=== PATIENT | female | born 1995 | race Caucasian/White ===

== ENCOUNTER → 2016-10-28 | Outpatient (CLI) | payer OTHER ==
--- NOTE | 2016-10-28 12:36 | XR ---
EXAMINATION TYPE: XR foot complete RT DATE OF EXAM: 10/28/2016 COMPARISON: NONE HISTORY: 21-year-old female with injury and pain. A nail went through her mid arch today. TECHNIQUE: 3 views FINDINGS: There is some soft tissue swelling along the plantar midfoot. No retained radiopaque foreign body. No acute fracture, subluxation, or dislocation. IMPRESSION: Some mid foot plantar soft tissue swelling. No retained radiopaque foreign body or acute osseous abno rmality seen.
== END | disposition home or self-care (01) ==
LOC: RADXRMAIN 11:23
PROVIDERS: ATTEND Emergency Medicine
DX: M79.89 Other specified soft tissue disorders (principal)

== ENCOUNTER 2019-11-16 23:01 | Emergency (ER) | payer OTHER ==
[2019-11-16 23:15] VITALS: BP 120/69; PULSE 98; RESP 18; TEMP 98.7
[2019-11-16] MEDS ORDERED: LIDOCAINE 1% INJ 10MG/ML (20 ML MDV) SQ ONE (23:22)
[2019-11-16] MEDS ORDERED: BUPIVACAINE (PF) 0.25% 30 ML VIAL SQ STA (23:22)
--- NOTE | 2019-11-16 23:26 | ED ---
Skin/Abscess/FB HPI - General Chief complaint: Skin/Abscess/Foreign Body Stated complaint: Finger Injury, [facility] Time Seen by Provider: 11/16/19 23:19 Source: patient Mode of arrival: ambulatory Limitations: no limitations - History of Present Illness Initial comments: Татьяна castellano previously healthy 24-year-old female presents the ER today for evaluation of injury to her left ring finger. Patient reports that she was wearing her mental leading ring which caught on a barn door hinge, ringing was essentially ripped off of her finger she immediately noted bleeding to the finger. Patient states she got lightheaded when she saw the blood, her coworker wrapped up the finger and advised her to come the hospital. Patient was able to remove the ring. She does report that her last tetanus update was 3 years ago. - Related Data Allergies Allergy/AdvReac Type Severity Reaction Status Date / Time No Known Allergies Allergy Verified 11/16/19 23:15 Review of Systems ROS Statement: Those systems with pertinent positive or pertinent negative responses have been documented in the HPI. ROS Other: All systems not noted in ROS Statement are negative. Past Medical History Past Medical History: No Reported History History of Any Multi-Drug Resistant Organisms: None Reported Past Surgical History: No Surgical Hx Reported Past Psychological History: No Psychological Hx Reported Smoking Status: Current every day smoker Past Alcohol Use History: Rare Past Drug Use History: None Reported General Exam - General Exam Comments Initial Comments: Physical Exam GENERAL: Patient is well-developed and well-nourished. Patient is nontoxic and well-hydrated and is in no distress. HENT: Normocephalic, Atraumatic. EYES: PERRL, EOMI PULMONARY: Unlabored respirations. CARDIOVASCULAR: RRR Warm and well perfused extremities ABDOMEN: Non-distended SKIN: No rashes or bruising : Deferred NEUROLOGIC: Alert and oriented Normal speech Normal gait MUSCULOSKELETAL: Moving all extremities with no apparent injury SKIN: Avulsion the superficial skin on the palmar surface of left ring finger from MCP to PIP PSYCHIATRIC: No SI/HI Limitations: no limitations Course Vital Signs 11/16/19 23:12 Temperature 98.7 F Pulse Rate 98 Respiratory 18 Rate Blood Pressure 120/69 O2 Sat by Pulse 99 Oximetry Procedures - Nerve Block Consent Obtained: verbal consent Local Anesthetic Used: Marcaine 0.25% Amount of anesthesia used: 2 Side: left Nerve Blocks: digital Procedure Successful: Yes Complications: none Patient Tolerated Procedure: well, no complications Medical Decision Making - Medical Decision Making Patient was seen and evaluated history was obtained from the patient Physical exam reveals an avulsion of the skin on the palmar surface of the left ring finger, this is not deep there's bloody dermis visible no deep injury Nerve block was performed wound was cleansed, avulsed tissue was trimmed and the wound was dressed Wound care was discussed patient [place] return parameters were discussed patient was discharged home in stable condition Disposition Clinical Impression: Avulsion of skin of finger Disposition: HOME SELF-CARE Condition: Stable Instructions (If sedation given, give patient instructions): Skin Avulsion (ED) Is patient prescribed a controlled substance at d/c from ED?: No Referrals: None,Stated [Primary Care Provider] - 1-2 days
== END 2019-11-17 00:06 | disposition home or self-care (01) ==
LOC: EC 23:01
DX: S61.205A Unspecified open wound of left ring finger without damage to nail, initial encounter (principal); F17.200 Nicotine dependence, unspecified, uncomplicated; W23.0XXA Caught, crushed, jammed, or pinched between moving objects, initial encounter; Y92.69 Other specified industrial and construction area as the place of occurrence of the external cause; Y99.0 Civilian activity done for income or pay
CPT/HCPCS: 99283; 64450; J2001

== ENCOUNTER 2021-01-01 14:01 | Emergency (ER) | payer BC ==
[2021-01-01 14:09] VITALS: BP 124/81; PULSE 116; RESP 16; TEMP 98
--- NOTE | 2021-01-01 15:32 | ED ---
Upper Extremity HPI - General Chief Complaint: Extremity Injury, Upper Stated Complaint: Injury-Hand Time Seen by Provider: 01/01/21 15:06 Source: patient Mode of arrival: ambulatory Limitations: no limitations - History of Present Illness Initial Comments: This is a 25 yo female with no PMHx who presents to the ED for R hand injury. 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 She states she has pain over the lateral dorsal aspect of the hand. States she has mild tingling in the 4th/5th digits. No numbness or weakness but ROM decreased secondary to pain. Denies any other injuries. States she is here to get cleared to go back to work. - Related Data Allergies Allergy/AdvReac Type Severity Reaction Status Date / Time No Known Allergies Allergy Verified 01/01/21 14:09 Review of Systems ROS Statement: Those systems with pertinent positive or pertinent negative responses have been documented in the HPI. ROS Other: All systems not noted in ROS Statement are negative. Past Medical History Past Medical History: No Reported History History of Any Multi-Drug Resistant Organisms: None Reported Past Surgical History: No Surgical Hx Reported Past Psychological History: No Psychological Hx Reported Smoking Status: Current every day smoker Past Alcohol Use History: Rare Past Drug Use History: None Reported General Exam - General Exam Comments Initial Comments: Constitutional: Awake alert Appears comfortable Head: Normocephalic atraumatic Eyes: no conjunctival injection No scleral icterus EOMI Neck: No JVD Supple Heart: Regular rate rhythm normal S1-S2 no murmurs Lungs: Clear to auscultation bilaterally No wheezing No rales Abdomen: Soft nondistended nontender Extremities: Non edematous DP pulses intact Radial pulses intact, there is ecchymosis and swelling over the distal aspect of the fifth metacarpal and the dorsal side. The patient does have tenderness over this location. The patient has intact sensation and good cap refill in all fingers. No tenderness to palpation over the other digits. No painful range of motion or tenderness over the wrist. Neuro: A&Ox3 No focal neurologic deficits Psych: Appropriate mood and affect Limitations: no limitations Course Vital Signs 01/01/21 14:06 Temperature 98 F Pulse Rate 116 H Respiratory 16 Rate Blood Pressure 124/81 O2 Sat by Pulse 99 Oximetry Medical Decision Making - Medical Decision Making This is a 25-year-old female who presents emergency department for right hand pain. She had an x-ray performed that did show a distal fifth metacarpal fracture. This was a related and comminuted. I did do a little bit of traction and reduction at bedside and the patient was placed into an ulnar gutter splint. The patient tolerated this well. She will be given a work note until she is cleared by hand surgery. She was given Dr. Robles for follow-up. Total return emergency Department if she has increasing pain, numbness, [place], or weakness in the extremity. All questions were answered. Disposition Clinical Impression: Closed fracture of 5th metacarpal Disposition: HOME SELF-CARE Condition: Stable Instructions (If sedation given, give patient instructions): Hand Fracture (ED) Is patient prescribed a controlled substance at d/c from ED?: No Referrals: None,Stated [Primary Care Provider] - 1-2 days Jesse Murry DO [Doctor of Osteopathic Medicine] - 1-2 days
--- NOTE | 2021-01-01 15:57 | XR ---
EXAMINATION TYPE: XR hand complete RT DATE OF EXAM: 01/01/2021 COMPARISON: NONE HISTORY: Pain TECHNIQUE: Three views are submitted. FINDINGS: There is a displaced intra-articular fracture of the distal fifth metacarpal with angulation. There is a deformity of the distal phalanx second digit correlate with point tenderness. IMPRESSION: 1. Displaced angulated fracture intra-articular distal fifth metacarpal. 2. Age-indeterminate fracture distal phalanx second digit correlate with point tenderness.
== END 2021-01-01 16:35 | disposition home or self-care (01) ==
LOC: EC 14:01
DX: S62.306A Unspecified fracture of fifth metacarpal bone, right hand, initial encounter for closed fracture (principal); F17.200 Nicotine dependence, unspecified, uncomplicated; W23.1XXA Caught, crushed, jammed, or pinched between stationary objects, initial encounter; Y99.0 Civilian activity done for income or pay
CPT/HCPCS: 29125; 99283

== ENCOUNTER → 2021-01-11 | Outpatient (CLI) | payer BC ==
--- NOTE | 2021-01-11 09:20 | CT ---
EXAMINATION TYPE: CT hand RT wo con DATE OF EXAM: 01/11/2021 COMPARISON: Right hand x-ray 10 days ago HISTORY: Displaced fx of 5th metacarpal after crushing injury CT DLP: 310.0 mGycm Automated exposure control for dose reduction was used. FINDINGS: Acute comminuted minimally displaced intra-articular fracture through the fifth metatarsal head as 3 fracture fragments including the distal radial and distal ulnar fragments both measuring approximatel y 8 to 9 mm by 5 mm. There is some abnormal palmar angulation of approximately 35 degrees on sagittal images. Joint spaces fairly well maintained. Some impaction at fracture line is noted. Remainder of the Right hand shows suspected artifact from the distal phalanx of all digits mimicking fracture, correlate clinically . Metallic BB placed distal radial level. Joint spaces are maintained . Moderate subcutaneous edema throughout the second finger is present, cannot exclude slightly displa jen distal fracture distal phalanx sagittal image 33 versus artifact. IMPRESSION: As above.
== END | disposition home or self-care (01) ==
LOC: RADCTMAIN 07:30
PROVIDERS: ATTEND Orthopaedic Surgery Hand Surgery
DX: S62.398A Other fracture of other metacarpal bone, initial encounter for closed fracture (principal)

== ENCOUNTER 2021-01-13 10:53 | Day surgery (SDC) | payer BC ==
--- NOTE | 2021-01-11 20:56 | P.HPOR ---
History of Present Illness H&P Date: 01/11/21 Chief Complaint: Right Intra-articular metacarpal head fracture New Patient Hand Surgery H&P Office Note Subjective: This is a 25 year old RHD female that presents today for initial evaluation regarding a right hand injury that occurred on 01/01/21. Patient states she was helping demo a house when her right hand was crushed between drywall and an aluminum beam. She was seen in the ED and placed in a splint. She denies any prior injury to this hand in the past. Denies any paresthesias and has no other complaints at this time and currently works at the [employer]. The 16 point Review of Systems has been reviewed with patient. Social History: Smoking:Current smoker Smoking Amount: 1 PPD Alcohol: none Past Medical History: None Family History: Mother: alive thyroid disorder. Father: alive & well. Sibling(s): alive & well. Family History: lung cancer, kidney cancer, bone cancer. Dementia, thyroid disease, brain cancer Current Medications: Rx: allergy medication , Ref: 0 Rx: TylenoL 325 mg tablet Ref: 0 Instructions: take 1 - 2 tablets (325 - 650 mg) by oral route bedtime Physical Examination: RUE: AIN/PIN/Radial/Ulnar/Median motor intact. Radial/Ulnar/Median SILT. 2+/4 Radial/Ulnar pulses palpated. Pain, swelling, bruising and TTP over 5th metacarpal head/ neck region with soft tissue swelling. No rotational deformity present with attempted clenched fist. Imaging: X-Rays of the right hand demonstrate a comminuted and displaced intra-articular 5th metacarpal head fracture with intra-articular step off and separation of 2mm. Impression: 1.) Right displaced and comminuted intra-articular 5th metacarpal head fracture. Plan: Diagnosis and treatment options were discussed with the patient. Due to the intra-articular nature and amount of articular step off and displacement seen on todays imaging I recommend surgical intervention involving ORIF of her comminuted intra-articular 5th metacarpal head fracture. Risks and benefits of surgery were discussed including bleeding, damage to surrounding tissue, possible irritable hardware, need for further surgery, and possibility of post- traumatic arthritis were discussed with the patient and she was understanding of this and wished to pursue surgical intervention. Pre-operative labs are ordered. Pre-operative CT of the right hand without contrast is ordered to better define the multiple fragments of the right 5th metacarpal head for preoperative planning that are not well visualized on plain imaging. We will tentatively plan for ORIF of her right intra-articular 5th metacarpal head fracture. She was placed into a ulnar gutter splint and is to be non-weight bearing to her right upper extremity and is to perform clean, dry left handed work only. All questions answered. -Jesse Murry DO Orthopedic Hand/Upper Extremity Surgeon Past Medical History Past Medical History: No Reported History History of Any Multi-Drug Resistant Organisms: None Reported Past Surgical History: No Surgical Hx Reported Past Psychological History: No Psychological Hx Reported Smoking Status: Current every day smoker Past Alcohol Use History: Rare Past Drug Use History: None Reported Medications and Allergies Allergies Allergy/AdvReac Type Severity Reaction Status Date / Time No Known Allergies Allergy Verified 01/01/21 14:09 Physical Examination Osteopathic Statement: *. No significant issues noted on an osteopathic structural exam other than those noted in the History and Physical/Consult.
[2021-01-12 13:26] VITALS: BMI 20.5
[~2021-01-13 10:53] MED LIST: DEXAMETHASONE SOD PHOSPHATE 4 MG/ML 1 ML VIAL IV ONE; HYDROmorphone 0.5 MG/0.5 ML SYRINGE IVP PRN; LACTATED RINGERS 1,000 ML IV SCH; LIDOCAINE 1% (10MG/ML) FOR IV START INTRADERMA PRN; ONDANSETRON 4 MG/2 ML VIAL IVP ONE; SCOPOLAMINE 1.5MG/72HR PATCH TRANSDERM ONE
[2021-01-13] MEDS ORDERED: KETOROLAC 15 MG/ML 1 ML VIAL ONE (12:33)
[2021-01-13] MEDS ORDERED: fentaNYL (PF) 50 MCG/ML 2 ML AMP ONE (12:33)
[2021-01-13] MEDS ORDERED: DILTIAZEM 100 MG VIAL.PORT IV ONE (12:33)
[2021-01-13] MEDS ORDERED: LIDOCAINE 1% INJ 10MG/ML (20 ML MDV) ONE (12:33)
[2021-01-13] MEDS ORDERED: PROPOFOL 10 MG/ML 20 ML VIAL IV ONE (12:33)
[2021-01-13] MEDS ORDERED: MIDAZOLAM 2 MG/2 ML VIAL ONE (12:33)
[2021-01-13] MEDS ORDERED: BUPIVACAINE (PF) 0.5% 30 ML VIAL SQ ONE ×2 (13:09→13:40)
[2021-01-13 14:02] VITALS: TEMP 97.9
[2021-01-13 14:45] VITALS: RESP 16
[2021-01-13 15:01] VITALS: BP 110/74; PULSE 81
--- NOTE | 2021-01-14 07:54 | P.OP ---
Date of Procedure: 01/13/21 Preoperative Diagnosis: Right intra-articular 5th metacarpal head fracture, displaced. Postoperative Diagnosis: Same Procedure(s) Performed: Open reduction internal fixation of right intra-articular 5th metacarpal head fracture, displaced Implants: Synthes 1.5mm cortical screw x 2 Anesthesia: KATIEA Surgeon: Jesse Murry Estimated Blood Loss (ml): 0 Pathology: none sent Condition: stable Disposition: PACU Description of Procedure: This is a 25 year old female who sustained a displaced intra-articular right 5th metacarpal head fracture with articular step off and widening while demolishing a house after her hand was crushed between a metal beam and drywall. Due to the nature of in fracture an amount of articular displacement decision to proceed with surgical intervention was made. Risks and benefits of surgery were discussed with the patient including bleeding, damage to surrounding tissue, infection, need for further surgery, possible need for hardware removal in future, progression to post traumatic arthritis as well as risks of anesthesia including pulmonary embolism and even and the patient wished to proceed with surgical intervention. The patients was seen in the pre-operative area by myself. Consent and H&P were completed and updated. The correct extremity was marked in the pre-operative area by myself and all other questions were answered. Operative Narrative: The patient was brought to the operating room by the department of anesthesia. They remained on the portable stretcher and a rolling hand table was brought to the side of the operative extremity. The patient was then drifted off to sleep by the department of anesthesia. A nonsterile tourniquet was then applied to the operative extremity and the right upper extremity was then prepped and draped in normal sterile fashion. Pre-operative time out was performed indicating the correct patient, procedure and laterality. All in the room agreed. Pre-operative antibiotics were given prior to skin incision. The operative extremity was the exsanguinated with an esmarch bandage and the tourniquet was inflated to 250mmHg. Longitudinal incision was made directly over the right small finger MCP joint. Blunt dissection was performed with Littler scissors down to the level of the common extensor tendon of the small finger. This was split centrally and in a longitudinal fashion, joint capsule was then identified and sharply split longitudinally and fracture hematoma was identified and irrigated out. The fracture fragments were identified and large intra-articular split was appreciated that involved the radial and ulnar condyles of the metacarpal head with 3mm of articular gap. There was also metaphyseal comminution present. Reduction maneuver to correct volar angulation was performed initially and a pointed reduction clamp was used to anatomically reduce the articular displacement between the 2 large fracture fragments of the metacarpal head. Anatomic reduction of the articular surface was then confirmed on intra-opera tive fluoroscopy. A .045 K-wire was then inserted at an extra-articular starting point across the radial and ulnar portions of the articular head bicortically just dorsal and proximal to the ulnar collateral ligament origin of the MCP joint in a ulnar to radial fashion. 0.045 k-wire was then removed and a 1.5mm drill was used to open the near cortex. Depth gauge was used to measure for screw length and a 1.5mm screw was inserted across the two articular fragments in a lag by technique fashion and great compression of the articular fragments was obtained. Attention was then brought to the large radial articular portion of the fracture. 0.045 k-wire was inserted in a retrograde fashion through the center of the articular portion of the radial fragment taking care not to damage surrounding metacarpal articular cartilage, K-wire purchase was bicortical with purchase and extension down to the meta-diaphyseal cortex. Near cortex was then drilled with a 1.5mm drill bit. Countersink was then used to ensure the head of the screw would not protrude. Depth gauge was used to measure for screw length and a 1.5mm cortical screw was inserted in a lag by technique fashion with good compression appreciated upon screw insertion. The MCP joint was then put through normal range of motion and the head of the articular screw was confirmed to be buried deep to the articular surface and gliding of the MCP joint was unremarkable. Final images were taken with Mini-C arm. The wound was then irrigated and the extensor tendon was then closed with a running 4-0 ethibond suture. Skin closure was performed with 4-0 nylon suture in a horizontal mattress fashion. 0.5% bupivicaine was then injected in the surrounding surgical site and digital nerve block to small finger was performed. Sterile dressing was applied with adaptic, bacitracin, 4x4s, cast padding and an ulnar gutter splint. Tourniquet was let down and brisk cap refill was appreciated to the entire hand. The patient was then woken by the department of anesthesia and transferred to PACU in stable condition. Jesse Murry D.O. Orthopedic Hand/Upper Extremity Surgeon
== END 2021-01-13 15:16 | disposition home or self-care (01) ==
LOC: OR 10:53
PROVIDERS: ATTEND Orthopaedic Surgery Hand Surgery
DX: S62.396A Other fracture of fifth metacarpal bone, right hand, initial encounter for closed fracture (principal); W23.0XXA Caught, crushed, jammed, or pinched between moving objects, initial encounter; F17.200 Nicotine dependence, unspecified, uncomplicated; Z80.8 Family history of malignant neoplasm of other organs or systems
CPT/HCPCS: 25565; 26615; J1100; J2405; J0690; 81025